=== PATIENT | female | born 1990 | race Hispanic/Latino ===

== ENCOUNTER 2024-06-17 06:39 | Emergency (ER) | payer OTHER ==
[2024-06-17] MEDS ORDERED: TRAMADOL HCL 50 MG TAB ONE (07:14)
[2024-06-17 07:48] LABS: Specific Gravity 1.025 (1.005-1.030)
[2024-06-17 07:49] LABS: Sqamous Epithelial <5 /HPF (None Seen); Urine Bacteria <20 /HPF (<20); Urine Culture Reflex Order REFLEXED; Urine Micro Reflex YN NO BILL MICROSCOPIC; Urine Mucus 4+ /HPF (None Seen); Urine RBC >50 /HPF (None Seen); Urine WBC >50 /HPF (<5); Urine Yeast (Budding) Few /HPF (None Seen)
--- NOTE | 2024-06-17 08:27 | RAD REPORT ---
EXAMINATION: CT ABDOMEN AND PELVIS WITHOUT CONTRAST -Stone protocol CLINICAL INDICATION: Female, 34 years old.hematuria, suprapubic pain TECHNIQUE: CT abdomen and pelvis was performed, without IV contrast, as per department protocol. Axia l, sagittal and coronal reconstructions were obtained. One or more of the following dose reduction techniques were used: Automated exposure control, adjustment of the mA and/or kV according to the pat ient size, and/or iterative reconstruction. Unless otherwise specified, incidental findings do not require dedicated imaging follow-up. [id number]. IV CONTRAST: Not administered. COMPARISON: None FINDINGS: The lack of intravenous contrast limits the sensitivity of this exam for evaluation of solid visceral organs, vascular structures, and retroperitoneum. LOWER CHEST: No acute process identified.No significant pericardial effusion. Small hiatal hernia wit h circumferential thickening of the esophagus which could reflect esophagitis. UPPER GI: No significant abnormality. LIVER: No significant focal abnormality. GALLBLADDER/BILE DUCTS: No biliary ductal dilatation.? PANCREAS: No mass, ductal dilation, or loida-pancreatic fluid. SPLEEN: Unremarkable. ADRENALS: No adrenal masses. KIDNEYS AND URETERS: No hydronephrosis.Limited evaluation for renal lesions in the absence of IV cont rast.No renal calculi. ABDOMINAL AORTA AND OTHER VESSELS: Normal caliber aorta and IVC. PERITONEUM: No abnormal free fluid. No free air. LYMPH NODES: No pathologic lymphadenopathy. ABDOMINAL WALL: Small fat containing umbilical hernia. SMALL BOWEL/COLON: Small bowel has normal course and caliber. No colonic wall thickening or pericolon ic inflammatory changes.Normal appendix. Mild diverticulosis without diverticulitis. URINARY BLADDER: Circumferential bladder wall thickening which could reflect cystitis. Correlate with urinalysis. REPRODUCTIVE ORGANS: No pathologic process. MUSCULOSKELETAL: No acute or suspicious osseous abnormality. ADDITIONAL FINDINGS: None. IMPRESSION: Possible cystitis. Correlate with urinalysis. No urinary tract calculi.
[2024-06-17 08:50] LABS: Absolute Eosinophils 0.1 K/uL (0-0.5); Absolute Lymphocytes (CBC) 1.8 K/uL (0.7-4.9); Absolute Monocytes 0.5 K/uL (0.1-1.3); Absolute Neutrophil 7.2 K/uL (1.8-8.0); Basophils % 0.3 % (0-1.3); Eosinophils % 1.2 % (0-4.4); Hematocrit 31.6 % (36.0-45.0); Hemoglobin 10.1 g/dL (12.0-15.0); Lymphocytes % 18.9 % (15.3-44.8); MCH 24.1 pg (27.0-35.0); MCV 75.2 fL (80-100); MPV 9.3 fL (7.6-11.3); Monocytes % 5.6 % (3.3-12.3); Platelets 317 thou/uL (152-406); RBC Red Blood Cell Count 4.21 M/uL (3.86-4.86); Red Cell Distribution Width 16.5 % (12.1-15.2)
[2024-06-17 08:59] LABS: Anion Gap 7.6 mEq/L (5.0-15.0); Potassium 3.6 mEq/L (3.5-5.1)
--- NOTE | 2024-06-17 09:04 | ER ---
Nurse's Notes [facility] Name: Nas Perez Age: 34 yrs Sex: Female : 1990 Arrival Date: 06/17/2024 Time: 06:39 Bed 8 Private MD: Diagnosis: UTI/ Urinary tract infection, site not specified;Acute cystitis Presentation: 06/17 06:49 Chief complaint: Patient states: BURNING WITH URINATION SINCE YESTERDAY. PELVIC ha1 PRESSURE. 06:49 Coronavirus screen: Client denies travel out of the [place] in the last 14 days. Ebola ha1 Screen: No symptoms or risks identified at this time. Initial Sepsis Screen: Does the patient meet any 2 criteria? No. Patient's initial sepsis screen is negative. Does the patient have a suspected source of infection? No. Patient's initial sepsis screen is negative. Risk Assessment: Do you want to hurt yourself or someone else? Patient reports no desire to harm self or others. Onset of symptoms was June 17, 2024. 06:49 Method Of Arrival: Ambulatory ha1 06:49 Acuity: STEVE 3 ha1 Triage Assessment: 06:46 General: Appears uncomfortable, Behavior is cooperative. Pain: Complains of pain in ha1 pelvis Pain currently is 10 out of 10 on a pain scale. Quality of pain is described as burning, pressure. Neuro: Level of Consciousness is awake, alert, obeys commands, Oriented to person, place, time, situation. Cardiovascular: Capillary refill < 3 seconds Patient's skin is warm and dry. Respiratory: Airway is patent Respiratory effort is even, unlabored, Respiratory pattern is regular, symmetrical. GI: No signs and/or symptoms were reported involving the gastrointestinal system. : Urine is blood tinged, Reports burning with urination, since YESTERDAY. Derm: Skin is pink, warm \T\ dry. Musculoskeletal: Circulation, motion, and sensation intact. Range of motion: intact in all extremities. 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 - Infectious Disease History:: Denies. - Social history:: Smoking status: Patient denies any tobacco usage or history of. - Family history:: not pertinent. - Hospitalizations: : No recent hospitalization is reported. Screenin:36 [facility] ED Fall Risk Assessment (Adult) History of falling in the last 3 months, hb including since admission No falls in past 3 months (0 pts) Confusion or Disorientation No (0 pts) Intoxicated or Sedated No (0 pts) Impaired Gait No (0 pts) Mobility Assist Device Used No (0 pt) Altered Elimination No (0 pt) Score/Fall Risk Level 0 - 2 = Low Risk Oriented to surroundings, Maintained a safe environment, Educated pt \T\ family on fall prevention, incl call for assistance when getting out of bed. Abuse screen: Denies threats or abuse. Denies injuries from another. Nutritional screening: No deficits noted. Tuberculosis screening: No symptoms or risk factors identified. Assessment: 07:57 General: Appears in no apparent distress. comfortable, well groomed, well developed, kc6 Behavior is calm, cooperative, appropriate for age. Pain: Complains of pain in pelvis Pain does not radiate. Quality of pain is described as crampy, dull, pressure. Neuro: Level of Consciousness is awake, alert, obeys commands, Oriented to person, place, time, situation, Appropriate for age. Cardiovascular: Capillary refill < 3 seconds. Respiratory: Airway is patent Trachea midline Respiratory effort is even, unlabored, Respiratory pattern is regular, symmetrical. GI: No signs and/or symptoms were reported involving the gastrointestinal system. : Urine is blood tinged, Reports burning with urination. EENT: No signs and/or symptoms were reported regarding the EENT system. Derm: No signs and/or symptoms reported regarding the dermatologic system. Skin is intact, is healthy with good turgor, Skin is pink, warm \T\ dry. Musculoskeletal: No signs and/or symptoms reported regarding the musculoskeletal system. Circulation, motion, and sensation intact. Range of motion: intact in all extremities. 08:36 Reassessment: Patient appears in no apparent distress at this time. Patient and/or hb family updated on plan of care and expected duration. Pain level reassessed. Patient is alert, oriented x 3, equal unlabored respirations, skin warm/dry/pink. Vital Signs: 06:49 BP 136 / 94; Pulse 84; Resp 17 S; Temp 99.9; Pulse Ox 100% on R/A; Weight 77.11 kg; ha1 Height 4 ft. 11 in. ; 08:36 BP 127 / 84; Pulse 79; Resp 16; Pulse Ox 98% on R/A; hb 06:49 Body Mass Index 34.34 (77.11 kg, 149.86 cm) [facility] ED Course: 06:43 Patient arrived in ED. gm2 07:00 Rick Rios MD is Attending Physician. rn 07:05 Initial lab(s) drawn, by me, sent to lab. Urine collected: clean catch specimen, blood kc6 tinged. Missed attempt(s): 20 gauge in left forearm. Patient maintains SpO2 saturation greater than 95% on room air. 07:08 Triage completed. ha1 07:16 Shawanda Monsalve RN is Primary Nurse. kc6 07:36 Patient has correct armband on for positive identification. Bed in low position. Call hb light in reach. Provided Education on: tests, result times, use of call light . 07:36 Arm band placed on. hb 07:57 Pulse ox on. NIBP on. Door closed. Noise minimized. Lights dimmed. Warm blanket given. kc6 Pillow given. Verbal reassurance given. 08:08 CT Stone Protocol In Process Unspecified. EDMS 08:36 Inserted saline lock: 22 gauge in right antecubital area, using aseptic technique. ty Blood collected. Flushed with 10 mL NS. 09:19 No provider procedures requiring assistance completed. IV discontinued, intact, hb bleeding controlled, No redness/swelling at site. Pressure dressing applied. Administered Medications: 08:04 Drug: traMADol PO 50 mg PO once Route: PO; hb 09:00 Follow up: Response: No adverse reaction hb 09:19 Drug: Ciprofloxacin PO 500 mg PO once Route: PO; hb 09:19 Follow up: Response: Medication administered at discharge. hb Medication: 07:36 VIS not applicable for this client. hb Outcome: 09:03 Discharge ordered by . rn 09:19 Discharged to home ambulatory, with significant other, hb 09:19 Condition: stable 09:19 Discharge instructions given to patient, Instructed on discharge instructions, follow up and referral plans. medication usage, Demonstrated understanding of instructions, follow-up care, medications, Prescriptions given X 1, 09:22 Patient left the ED. hb Signatures: Dispatcher [employer] EDMS Rick Rios MD MD rn Baxter, Yvonne, RN RN hb Ida Diaz RN RN ha1 Shawanda Monsalve RN RN [email or web address] Hope Krishna gm2 Del Hammond
--- NOTE | 2024-06-17 09:04 | EDPHYS ---
Physician Documentation [facility] Name: Nas Perez Age: 34 yrs Sex: Female : 1990 Arrival Date: 06/17/2024 Time: 06:39 Bed 8 Private MD: ED Physician Rick Rios HPI: 06/17 07:14 This 34 yrs old Female presents to ER via Ambulatory with complaints of Pain rn With Urination, BLOOD IN URINE. 07:14 The patient presents with urinary symptoms, dysuria, frequency, hematuria, urgency. rn Onset: The symptoms/episode began/occurred yesterday. Modifying factors: The symptoms are alleviated by nothing, the symptoms are aggravated by nothing. Associated signs and symptoms: Pertinent positives: fever, Pertinent negatives: vaginal bleeding, vaginal discharge. Severity of symptoms: At their worst the symptoms were moderate, in the emergency department the symptoms are unchanged. The patient has experienced a previous episode. Patient reports suprapubic abdominal pain associated with fever and dysuria. Small amount of blood in urine. No history of kidney stone. No trauma. No back pain. . 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 - Infectious Disease History:: Denies. - Social history:: Smoking status: Patient denies any tobacco usage or history of. - Family history:: not pertinent. - Hospitalizations: : No recent hospitalization is reported. ROS: 07:14 Constitutional: Positive for fever Cardiovascular: Negative for chest pain, rn palpitations, and edema, Respiratory: Negative for shortness of breath, cough, wheezing, and pleuritic chest pain, Abdomen/GI: Positive for suprapubic abdominal pain : Positive for dysuria and hematuria Exam: 07:14 Constitutional: This is a well developed, well nourished patient who is awake, alert, rn and in no acute distress. Cardiovascular: Regular rate and rhythm. No pulse deficits. Respiratory: No increased work of breathing, no retractions or nasal flaring. Abdomen/GI: Soft, mild suprapubic tenderness. No rebound or guarding. Back: No CVA tenderness Vital Signs: 06:49 BP 136 / 94; Pulse 84; Resp 17 S; Temp 99.9; Pulse Ox 100% on R/A; Weight 77.11 kg; ha1 Height 4 ft. 11 in. ; 08:36 BP 127 / 84; Pulse 79; Resp 16; Pulse Ox 98% on R/A; hb 06:49 Body Mass Index 34.34 (77.11 kg, 149.86 cm) ha1 MDM: 06:47 Medical Screening Exam initiated sp3 09:02 Differential diagnosis: nonspecific abdominal pain, urinary tract infection, Kidney rn stone, pyelonephritis, cystitis. Data reviewed: vital signs, nurses notes, lab test result(s), radiologic studies, CT scan, and as a result, I will discharge patient. Counseling: I had a detailed discussion with the patient and/or guardian regarding the historical points, exam findings, and any diagnostic results supporting the discharge/admit diagnosis, lab results, radiology results, the need for outpatient follow up, to return to the emergency department if symptoms worsen or persist or if there are any questions or concerns that arise at home. Special discussion: I discussed with the patient/guardian in detail that at this point there is no indication for admission to the hospital. It is understood, however, that if the symptoms persist or worsen the patient needs to return immediately for re-evaluation. ED course: CT shows cystitis, no pyelonephritis or kidney stone. Will discharge home with antibiotics and return precautions.. 06/17 07:48 Order name: Test, Urine; Complete Time: 08:59 [facility] 06/17 07:49 Order name: Urine Microscopic Only; Complete Time: 08:59 [facility] 06/17 07:53 Order name: Urine Microscopic Only [facility] 06/17 07:53 Order name: Test, Urine [facility] 06/17 07:53 Order name: CBC with Automated Diff; Complete Time: 08:59 [facility] 06/17 07:53 Order name: Basic Metabolic Panel; Complete Time: 07:26 [facility] 06/17 07:53 Order name: Urine Culture [facility] 06/17 07:05 Order name: CT Stone Protocol; Complete Time: 08:59 rn 06/17 07:05 Order name: IV Start; Complete Time: 08:33 rn 06/17 07:43 Order name: Labs - recollect needed: recollect green and lavender; Complete Time: 08:33 bd Administered Medications: 08:04 Drug: traMADol PO 50 mg PO once Route: PO; hb 09:00 Follow up: Response: No adverse reaction hb 09:19 Drug: Ciprofloxacin PO 500 mg PO once Route: PO; hb 09:19 Follow up: Response: Medication administered at discharge. hb Disposition Summary: 06/17/24 09:03 Discharge Ordered Notes: Location: Home rn Problem: new rn Symptoms: have improved rn Condition: Stable rn Diagnosis - UTI/ Urinary tract infection, site not specified rn - Acute cystitis rn Followup: rn - With: Private Physician - When: As needed - Reason: Recheck today's complaints, Re-evaluation by your physician Discharge Instructions: - Discharge Summary Sheet rn - Dysuria rn - Urinary Tract Infection, Adult rn Forms: - Medication Reconciliation Form rn - Antibiotic newborn hearing screener - Prescription Opioid Use rn - Patient Portal Instructions rn - Leadership Thank You Letter rn Prescriptions: - Pyridium 200 mg Oral Tablet - take 1 tablet ORAL route every 8 hours for 3 days; 9 tablet; Refills: 0, rn Product Selection Permitted - Cipro 500 mg Oral tablet - take 1 tablet ORAL route every 12 hours for 10 days; 20 tablet; Refills: 0, rn Product Selection Permitted Signatures: Dispatcher [employer] EDMS Bree Smith Roman, MD MD rn Baxter, Heather, RN RN Neil Espinoza MD MD sp3 Ida Diaz RN RN ha1 Corrections: (The following items were deleted from the chart) 07:51 07:51 Stone Protocol+CT.RAD.BRZ ordered. EDMS EDMS 08:27 07:51 BASIC METABOLIC PANEL+C.LAB.BRZ ordered. EDMS EDMS 08:29 07:51 Urinalysis W/Microscopic+U.LAB.BRZ ordered. EDMS EDMS 08:29 07:51 Test, Urine+UC.LAB.BRZ ordered. EDMS EDMS 08:29 07:51 CBC+H.LAB.BRZ ordered. EDMS EDMS
[2024-06-17] MEDS ORDERED: CIPROFLOXACIN HCL 500 MG TAB ONE (09:14)
[2024-06-17 09:27] VITALS: TEMP 99.9
[2024-06-17 09:28] VITALS: BP 127/84; O2SAT 98
== END 2024-06-17 09:22 | disposition home or self-care (01) ==
LOC: EDBD 06:39 → ER 06:39
DX: N39.0 Urinary tract infection, site not specified (principal)
CPT/HCPCS: 36415; 74176; 76377; 80048; 81015; 81025; 85025; 87086; 87088